=== PATIENT | male | born 1985 | race Hispanic/Latino ===

== ENCOUNTER 2021-07-16 21:45 | Emergency (ER) | payer OTHER ==
[~2021-07-16] VITALS: Ht 177.8 cm; Wt 79.4 kg
[2021-07-16] MEDS ORDERED: ACETAMINOPHEN 500 MG TABLET PO ONE (22:30)
[2021-07-16 22:42] VITALS: BP 137/88
[2021-07-16] MEDS ORDERED: ACET-66 PO (22:43)
[2021-07-16] MEDS ORDERED: CYCL10 PO (22:43)
== END 2021-07-16 23:05 | disposition home or self-care (01) ==
LOC: EDH 21:45
DX: S09.90XA Unspecified injury of head, initial encounter (principal); V43.52XA Car driver injured in collision with other type car in traffic accident, initial encounter; Y93.89 Activity, other specified; Y92.89 Other specified places as the place of occurrence of the external cause; Y99.8 Other external cause status